=== PATIENT | male | born 1950 | race Caucasian/White ===

== ENCOUNTER 2021-04-24 01:15 | Outpatient (REF) | payer SELFPAY ==
--- NOTE | 2021-04-24 09:15 | DI.NM_ITS ---
APPROVED REPORT Exam: Pharmacologic Patient Location: In-Patient Room/Bed: @ [facility] Stress Nurse: Veronica Still RN Ordering Provider:NORRIS LÓPEZ MD Contact Number: [phone] BMI: 37.29 Baseline Rhythm: Sinus Rhythm Indications: High troponin, abnormalities of plama proteins Medical History Medical History: Anemia, anxiety, hypertension, large prostate, salvage determiner use of opiates, NSTEMI 03/22 9, obesity, HARDEEP, Cardiac Medications: Aspirin, atorvastatin, clopidogrel, keppra, lisinopril, metoprolol tartrate, alb uterol HFA, albuterol ipratropium, oxycodone, modafinil Allergies: Gabapentin, HCTZ, celecoxib Cardiac Risk Factors: Hypertension, obesity, smoker (former), family hx Previous Cardiac Procedures: None Pretest Chest Pain Characteristics: None Exercise History: Sedentary Physical Disabilities: None Lung Sounds: Clear to auscultation Heart Sounds: Regular Stress Test Details Test: Pharmacologic stress testing performed using 0.4 mg of regadenoson per 5 mL given IV over 10 s econds. Reason for pharmacologic stress test: physical limitation, inpatient at [facility]. Nuclear Acquisition: Rest Tc-99m/Stress Tc-99m 1 day Rest Isotope: Tc-99m Sestamibi. Dose: 13.0 Date: 04/24/2021 Injection Time: 0925 Stress Isotope: Tc-99m Sestamibi. Dose: 41.5 Date: 04/24/2021 Injection Time: 1045 HR Resting HR Supine: 63 bpm Max Heart Rate (APMHR): 151.646009 bpm Target HR (85% APMHR): 128.834414 bpm Max HR Achieved: 96 bpm % of APMHR: 63.58 Recovery HR: 76 bpm Comment: Metoprolol tartrate not held prior to testing. BP Resting BP Supine: 140/80 mmHg Max BP: 162/80 mmHg Recovery BP: 158/84 mmHg ECG Resting ECG: Sinus Rhythm Ectopy: None Stress ECG: Sinus Rhythm ST Change: No significant ST segment changes noted Arrhythmia: Rare PVC Recovery ECG: Sinus Rhythm Recovery ST Change: No significant ST segment changes noted Recovery Arrhythmia: None Clinical Stress Symptoms: Lightheaded Rate Pressure Product: [id number] Stress ECG Conclusion 1. The resting electrocardiogram showed prolonged QT interval 2. Patient underwent pharmacologic stress with regadenoson 3. Heart rate achieved was 63% of predicted for age 4. Patient had no chest pain, did complain of lightheadedness 5. Electrocardiographically the test was nondiagnostic due to inadequate heart rate 6. No dysrhythmias were noted Stress Test Summary STAGE HR BP Symptoms NOTES Supine 63 140/80 SpO2 96% 1 min post Lexiscan injection 92 142/72 Mild lightheadedness, SpO2 96% 3 min post Lexiscan injection 85 162/80 Mild lightheadedness, SpO2 99% 6 min post Lexiscan injection 76 158/84 Symptoms resolved, SpO2 99% MPI Conclusion Normal myocardial perfusion without evidence of ischemia or prior infarction EF 78% Radiologist Interpretation Radiologist agrees with School Teacher's Interpretation. Radiologist Interpretation by: Jelani Multani MD Interpretation Date/Time: 04/24/2021 17:10:33
[2021-04-24] MEDS: Regadenoson 0.4 MG/5 ML SYR IVP (10:37)
== END 2021-04-24 01:35 ==
LOC: DI 01:15
PROVIDERS: PCP Neuromusculoskeletal Medicine & OMM; Visit Provider Internal Medicine Interventional Cardiology
DX: R74.8 Abnormal levels of other serum enzymes (principal); R77.9 Abnormality of plasma protein, unspecified; I10 Essential (primary) hypertension; E66.9 Obesity, unspecified; Z87.891 Personal history of nicotine dependence; Z82.49 Family history of ischemic heart disease and other diseases of the circulatory system; R94.39 Abnormal result of other cardiovascular function study
CPT/HCPCS: 78452; 93017; J2785

== ENCOUNTER → 2022-02-28 02:34 | Outpatient (CLI) | payer BC, SELFPAY ==
--- NOTE | 2022-02-28 | DI.CT_ITS ---
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 Pulmonary parenchyma: There is a stable 5 mm nodule associated with the right minor fissure. There i s a calcified granuloma in the left upper lobe. There is a 0.7 and 0.5 cm nodule in the left upper l obe which are stable. There are no focal consolidating infiltrates. No new pulmonary nodules are pr esent. Visualized thyroid gland: Unremarkable. Mediastinum and Linette: No dominant adenopathy or fluid collection. The esophagus is unremarkable. Pleura: No effusion or pneumothorax. Heart: The heart is not dilated. Moderate coronary artery calcification is present. No pericardial e ffusion. Pulmonary arteries: No pulmonary emboli are identified. Aorta: Thoracic aorta non-dilated. Atherosclerosis is present. Lymph nodes: Within normal limits. Soft tissues: Unremarkable. Bones:Within normal limits for the patient's age. ABDOMEN: Liver: Normal density. No measurable mass. Portal, Superior Mesenteric, and Splenic Veins: Unremarkable. Gallbladder and Biliary Tract: No radiodense calculus or dilation. Pancreas: Normal density, no abnormal calcifications or inflammatory process. Spleen: Normal. Adrenals: No masses seen. Kidneys: Normal size, contour and axis. No radiodense stones or obstructive uropathy. There is a simp le cyst in the left kidney. No follow-up is recommended. No renal mass is seen. Abdominal Aorta: Abdominal portion non-dilated. Atherosclerosis is present. Bowel: No obstruction or bowel wall thickening. No evidence of appendicitis. There is diverticulosis seen in the colon but no evidence of acute diverticulitis. Peritoneal Cavity: No ascites, collection or mesenteric inflammatory response. No free air. Lymph Nodes: Within normal limits. Bones: Within normal limits for the patient's age. Soft Tissues: There is an ileal conduit seen in the right abdominal wall. There there is fluid seen in the anterior abdominal wall in the midline inferior to the umbilicus deep to the midline scar. Th e collection measures 1.1 AP by 3.7 transverse by 2.5 craniocaudad. PELVIS: Bladder: Status post cystectomy with ileal conduit. Reproductive Organs: There appears to be a prostatectomy. Lymph Nodes: Within normal limits. Bones: Within normal limits. IMPRESSION: 1. Stable pulmonary nodules. 2. Status post cystectomy with ileal conduit. No suspicious soft tissue mass is seen in the surgical bed. 3. No evidence of abdominal or pelvic metastatic disease. 4. Small fluid collection seen deep in the surgical midline scar. Hematoma, seroma or abscess should be considered. RADIATION DOSE DELIVERED: 2,525.7mGy.cm Total DLP DATA REPOSITORY: All CT scans at this facility are submitted to the National Radiology Data Registry (NRDR) Dose Index Registry (DIR) with the [employer] ([employer]). RADIATION OPTIMIZATION: All CT scans at this facility use at least one of these dose optimization te chniques: automated exposure control; mA and/or kV adjustment per patient size (includes targeted exa ms where dose is matched to clinical indication); or iterative reconstruction.
[2022-02-28] MEDS: Barium Sulfate 2% W/V-Berry Smoothie 450 ML BTL PO (08:50)
[2022-02-28] MEDS: Omnipaque 350 MG/ML 500 ML BTL-Imaging package IJ (10:32)
[2022-02-28] MEDS: Normal Saline Flush 10 ML SYR IVP (10:35)
== END ==
PROVIDERS: PCP Neuromusculoskeletal Medicine & OMM; Visit Provider Student in an Organized Health Care Education/Training Program
DX: D49.4 Neoplasm of unspecified behavior of bladder (principal); R91.8 Other nonspecific abnormal finding of lung field
CPT/HCPCS: 74177; 71260